=== PATIENT | male | born 1980 | race Caucasian/White ===

== ENCOUNTER 2016-11-11 12:01 | Inpatient (IN) | payer OTHER ==
[~2016-11-11] VITALS: Ht 170.2 cm; Wt 74.8 kg
[2016-11-11] VITALS (8 sets, daily range): BP systolic 104–125; BP diastolic 65–91
--- NOTE | 2016-11-11 12:25 | NUR ---
PT MOVED TO ED T1 FOR INTUBATION
--- NOTE | 2016-11-11 12:25 | NUR ---
VERBAL ORDERS BY DR. MILLER FOR ETOMIDATE 20MG IVP, PUSHED BY MYSELF. AND VECURONIUM 10MG IVP BY MYSELF, 10MG STERILE WATER MIXED WITH VEURONIUM POWDER.
--- NOTE | 2016-11-11 12:26 | NUR ---
REPORT TO ZIA MORALES, DR MILLER ATTEMPTING INTUBATION
--- NOTE | 2016-11-11 12:30 | NUR ---
INTUBATION ETT SIZE 8 AT 24 CM RIGHT LIP, RT AT BEDSIDE, AND DR MILLER GAVE ORDERS FOR VENTILATOR SETTINGS
[2016-11-11 12:54] LABS: PLATELET COUNT 345 x10^3mcL (130-400); RED CELL DISTRIBUTION WIDTH 12.4 % (11.5-14.5)
[2016-11-11 13:07] LABS: CALCIUM 9.3 mg/dL (8.5-10.1); CARBON DIOXIDE 14.4 mmol/L (21-32); CREATININE SERUM 1.6 mg/dL (0.7-1.3); POTASSIUM SERUM 3.4 mmol/L (3.5-5.1)
[2016-11-11 13:11] LABS: ALBUMIN 4.1 g/dL (3.4-5.0); BILIRUBIN TOTAL 0.4 mg/dL (0.20-1.00)
[2016-11-11 13:12] LABS: TOTAL PROTEIN, SERUM 8.4 g/dL (6.4-8.2)
[2016-11-11 13:14] LABS: BAND NEUTROPHIL 2 % (0-10); BASOPHIL 0 % (0-2); MONOCYTE 4 % (0-7); PLATELET MORPHOLOGY PLATELETS NORMAL; SEGMENTED NEUTROPHILS 62 % (37-75); rbc morphology (normal/abnorm) NORMAL (NORMAL)
--- NOTE | 2016-11-11 13:32 | NUR ---
UPDATE: ASSISTED PRIMARY RN DURING INTUBATION AND STABILIZATION. ESCORTED PT TO CT SCAN WITH RT, RT STUDENT AND READ TECH X2, PLACED MONITOR SHOWING TACHYCARDIA IN 160'S WITH HTN PER ED MONITOR. CT SCAN COMPLETED AND RETURNED TO T1. UNEVENTFUL. PLACED BACK ON MONITOR, SZ PRECAUTIONS IN PLACE, BED LOW. REMAINS HYPERTENSIVE WITH TACHYCARDIA IN 150'S. NEURO NOTE- PT HAD NO RESPONSE TO LT WRIST ABG. REMAINS ON VET 100% WITH 16 RESP/ CLR & EQUAL.
--- NOTE | 2016-11-11 13:35 | NUR ---
PER DR. MILLER TO TELL RT TO REDUE FIO2 TO 40%. CALLED RT AND SPOKE TO MARÍA TO REDUCE FIO2.
--- NOTE | 2016-11-11 13:46 | NUR ---
VERSED 5MG IVP INTO LKEFT HAND PER DR. MILLER VERBAL ORDER.
--- NOTE | 2016-11-11 13:47 | NUR ---
LUMBAR PUNCTURE PROCEDURE STARTED, ACCOMPANIED BY RT DANIEL, DR. MILLER, AND MYSELF.
[2016-11-11 13:50] LABS: AMPHETAMINE QUAL UR NONE DETECTED (NEG <=1000)
--- NOTE | 2016-11-11 13:52 | NUR ---
VERBAL ORDER FRMO DR. MILLER TO PUSH VECURONIUM 10MG IVP INTO RIGHT WRIST. MED PUSHED BY GIL MORALES. PT MOVING DURING LUMBAR PUNCTURE.
--- NOTE | 2016-11-11 14:06 | NUR ---
BELONGINGS NOTE: AFTER CT REMOVED THE FOLLOW FROM PT AND PLACED IN DENTURE CUP 1- YELLOW METAL NECKLACE WITH CRUCIIFX 2- SILVER COLORED METAL CHAIN BRACLETS 1- DIGITAL WATCH PT ARRIVED WITH 1 CELL PHONE, NO OTHER WALLET, ID OR VALUABLES OTHER THAN CLOTHING.
--- NOTE | 2016-11-11 14:10 | NUR ---
GAVE REPORT TO PERLA MORALES IN ICU, SHE WILL ASSUME CARE PRIMARY RN POST TRASNFER.
[2016-11-11 14:23] LABS: PHOSPHOROUS 3.5 mg/dL (2.5-4.9)
[2016-11-11 14:26] LABS: MAGNESIUM 1.9 mg/dL (1.8-2.4)
[2016-11-11 14:31] LABS: CHOLESTEROL/HDL RATIO 4.6
[2016-11-11 14:36] LABS: FREE T4 0.83 ng/dL (0.76-1.46); FREE THYROXINE INDEX 2.3 ug/dL (1.4-4.5); T4(THYROXINE) 7.5 ug/dL (4.7-13.3)
--- NOTE | 2016-11-11 14:37 | NUR ---
PTS DAUGHTER'S GODMOTHER CAME IN BUT UNABLE TO GIVE ANY HISTORY OF PT.
[2016-11-11 14:39] LABS: T3 TOTAL 1.03 ng/mL
[2016-11-11 14:40] LABS: TOTAL PROTEIN CSF 25.6 mg/dL (15-45)
--- NOTE | 2016-11-11 14:53 | NUR ---
PT ARRIVES ON UNIT AT THIS TIME ACCOMPANIED BY RT, ANDREW LIZARRAGA, AND EMT. PT TRANSFERRED FROM [facility] TO BED WITHOUT INCIDENT. PT ATTACHED TO [facility] [employer]. WILL CONTINUE TO MONITOR AT THIS TIME.
[2016-11-11 15:07] LABS: APPEARANCE CSF CLEAR; COLOR CSF COLORLESS; RBC CSF 0 /cumm (0); WBC CSF 1 /cumm (0-5)
--- NOTE | 2016-11-11 15:20 | NUR ---
RADIOLOGY AT BEDSIDE FOR KUB TO CONFIRM PLACEMENT OF OGT.
--- NOTE | 2016-11-11 15:20 | NUR ---
STUDENT CORBY INSERTED OGT AT THIS TIME WITH ASSISTANCE BY MYSELF. AIR AUSCULTATED OVER EPIGASTRIC AREA AT THIS TIME.
--- NOTE | 2016-11-11 15:27 | NUR ---
PT FLAILING AROUND BED AND ATTEMPTING TO PULL OUT IV LINES AND ETT. BILATERAL WRIST RESTRAINTS PLACED AT THIS TIME AFTER SEVERAL ATTEMPTS TO CALM PT DOWN AND REORIENT. VERSED TITRATED UP TO 5 MG AT THIS TIME. WILL CONTINUE TO MONITOR AT THIS TIME.
--- NOTE | 2016-11-11 15:30 | NUR ---
PATIENT WEIGHT 72.57KG FLUID CHALLENGE OF 2200CC BOLUS COMPLETED AT 1530 1531 BP 127/81 1537 BP 117/87 2ND LACTIC ACID ORDERED FOR 1600
--- NOTE | 2016-11-11 16:10 | NUR ---
LACTIC ACID POST FLUID CHALLENGE LACTIC ACID RESULTS 3.5
--- NOTE | 2016-11-11 16:12 | NUR ---
LAB AT BEDSIDE FOR BLOOD DRAW.
--- NOTE | 2016-11-11 16:12 | NUR ---
FENTANYL INITIATED AT 1 MCG/MIN AT THIS TIME. WILL CONTINUE TO MONITOR AT THIS TIME.
--- NOTE | 2016-11-11 16:23 | NUR ---
VERSED TITRATED DOWN TO 3 MG/HR AT THIS TIME. WILL CONTINUE TO MONITOR.
--- NOTE | 2016-11-11 16:53 | NUR ---
FENTANYL TITRATED DOWN TO 0.5 MCG/KG/HR. RSS 3 PT STILL FOLLOWS COMMANDS BUT APPEARS COMFORTABLE. WILL CONTINUE TO MONITOR.
--- NOTE | 2016-11-11 17:00 | NUR ---
PT IS INTUBATED WITH 8.0 ETT, 24 LL, OGT IN PLACE, SEDATED ON FENT 0.5 MCG/KG/HR AND VERSED 3 MG/HR, NS 100, RSS 3 AT THIS TIME PT FOLLOWS COMMANDS. PT EYES OPEN TO VERBAL STIMULI AND PUPILS ARE BRISK 3 MM BILATERALLY. NO S/S OF HEADACHE. PT ON AC MODE, PEEP 5, FI02 40%, RATE 16, VT 600. BUL RHONCHI, BLL DIM, PT WITH COPIOUS BLOOD TINGED ORAL SECRETIONS. PT HAS SCHRADER CATH IN PLACE DRAINING TO GRAVITY STRAW COLORED URINE. PT HAS OGT IN PLACE AND SECURED. PT ABD IS SOFT, DISTENDED, SYMMETRICAL AND NONTENDER TO PALPATION. PT HAS HYPOACTIVE BOWEL SOUNDS X 4 QUADRANTS. PT HAS NO EDEMA AND ALL PULSES PALPABLE. PT HAS R WRIST IV AND LH IV PATENT AND FLUSHING WELL. PT IS ON CMM INSPECTOR. WILL CONTINUE TO MONITOR PT AT THIS TIME.
--- NOTE | 2016-11-11 17:30 | NUR ---
AT BEDSIDE, UPDATES PROVIDED. DR EPHRAIM RIVERA AT THIS TIME.
--- NOTE | 2016-11-11 17:55 | NUR ---
AT BEDSIDE. UPDATES PROVIDED. DR YE ORDER ZOSYN. WILL CONTINUE TO MONITOR AT THIS TIME.
--- NOTE | 2016-11-11 18:20 | NUR ---
LABORATORY VETERINARIAN BEDSIDE FOR ECHO.
--- NOTE | 2016-11-11 18:30 | NUR ---
SPEAKING TO PT SPOUSE COLTEN FOR CENTRAL LINE PLACEMENT. ALL RISKS AND BENEFITS NOTED. SPOUSE COLTEN CONSENTED AT THIS TIME WITNESSED BY MYSELF. SEE CHART FOR CONSENT.
--- NOTE | 2016-11-11 19:05 | NUR ---
TIME OUT PERFORMED AT THIS TIME. SEE CHART FOR DETAILS.
--- NOTE | 2016-11-11 19:10 | NUR ---
RECEIVED REPORT FROM ANDREW DUNCAN, WILL TAKE OVER CARE.
--- NOTE | 2016-11-11 19:28 | NUR ---
REPORT GIVEN TO NOC SHIFT ANDREW HUTCHINS. ALL QUESTIONS AND CONCERNS ADDRESSED AT THIS TIME. WILL ENDORSE ALL CARE.
--- NOTE | 2016-11-11 19:45 | NUR ---
PT ON VENT SEDATED WITH FENTANYL AND VERSED, MRSS 4, FULL PASSIVE ROM, LIMITED ACTIVE DUE TO SOFT RESTRAINTS, REACTIVE TO PAINFUL STIMULI, PUPILS REACTIVE, AC MODE 8.0, 24 LL, NO DRAINAGE EENT, TRACHEA MIDLINE, RIJ IN PLACE, NO COUGH OR SECRETIONS AT THIS TIME, ORAL MUCOSA PINK AND DRY, ORAL CARE PROVIDED. FIO2 40, PEEP 5, VT 500, RR 16, RESPIRATIONS EQUAL AND UNLABORED, LUNGS CLEAR BUL, DIM BLL, NO S/S OF DISTRESS. SKIN APPROPRIATE FOR ETHNICITY, COOL AND DRY, CAP REFILL <3, PULSES PALPABLE. NO CONTRACTURES OR DEFORMITIES. PT NPO, NO N/V. ABD SOFT, ROUND, NONTENDER, NO BM. F/C IN PLACE, URINE YELLOW, NO PENIAL, DRAINAGE OR EDEMA. WILL CONTINUE TO MONITOR.
--- NOTE | 2016-11-11 19:49 | NUR ---
RADIOLOGY AT BEDSIDE FOR CONFIRM PLACEMENT OF CENTRAL LINE.
--- NOTE | 2016-11-11 20:02 | NUR ---
DR GRACIA RICO, WILL CONTINUE TO MONITOR.
--- NOTE | 2016-11-11 21:51 | NUR ---
titrated fentanyl to 1.5mcg, versed 3.5 mg, will continue to monitor
[2016-11-12] VITALS (12 sets, daily range): BP systolic 108–137; BP diastolic 62–86
--- NOTE | 2016-11-12 02:05 | NUR ---
PT TRYING TO GET OUT OF BED, ADMINISTERED 1MG ATIVAN, WILL CONTINUE TO MONITOR.
--- NOTE | 2016-11-12 03:38 | NUR ---
PT ANXIOUS, ATIVAN 1MG ADMINISTERED, WILL CONTINUE TO MONITOR.
[2016-11-12 05:47] LABS: BASOPHIL % 0.4 % (0-2); PLATELET COUNT 242 x10^3mcL (130-400); RED CELL DISTRIBUTION WIDTH 13.1 % (11.5-14.5)
[2016-11-12 05:57] LABS: CALCIUM 7.4 mg/dL (8.5-10.1); CARBON DIOXIDE 23.3 mmol/L (21-32); CHLORIDE SERUM 108 mmol/L (98-107); GFR1 > 60 mL/min; GLUCOSE SERUM 126 mg/dL (74-106); MAGNESIUM 1.7 mg/dL (1.8-2.4); PHOSPHOROUS 2.6 mg/dL (2.5-4.9); POTASSIUM SERUM 3.4 mmol/L (3.5-5.1); SODIUM SERUM 142 mmol/L (136-145)
--- NOTE | 2016-11-12 07:00 | NUR ---
RECEIVED REPORT FROM NOC SHIFT ANDREW HUTCHINS, ALL QUESTIONS AND CONCERNS ADDRESSED AT THIS TIME. WILL ASSUME ALL CARE.
--- NOTE | 2016-11-12 07:30 | NUR ---
PT IS INTUBATED AND SEDATED ON FENT 2 MCG/KG/HR, AND VERSED TITRATED UP TO 6 MG/HR DUE TO FLAILING AROUND IN BED AND ATTEMPTING TO PULL OUT ETT. PT FOLLOWS COMMANDS BUT IS EASILY AGITATED. RSS 3 PT DOES FOLLOW COMMANDS. PT EYES OPEN TO VERBAL STIMULI AND PUPILS REMAIN 3 MM BRISK BILATERALLY. PT SHOWS NO S/S OF HEADACHE. PT HAS RIJ INFUSING NS 100 ML/HR, ALL PORTS PATENT AND FLUSHING, CDI DRESSING. CVP 10. PT HAS OGT, CURRENTLY WAITING TO START FEEDING. PT ON AC MODE, PEEP 5, FI02 35%, RATE 16, VT 500. BUL CLEAR, BLL DIM, NO SECRETIONS REMOVED AND ORAL CARE PROVIDED. PT HAS SCDS IN PLACE AND SUBQ HEP ORDERED FOR DVT PROPHYLAXIS. PT ABD IS SOFT, ROUND, SYMMETRICAL AND NONTENDER TO PALPATION PER FLACC SCALE. PT HAS HYPOACTIVE BOWEL SOUNDS X 4 QUADRANTS. PT HAS SCHRADER CATH IN PLACE DRAINING TO GRAVITY YELLOW URINE WITH SEDIMENT NOTED IN URINE, NO PENILE DISCHARGE OR LABIAL EDEMA. PT IS ON FURNITURE RESTORER AND WITHIN CLOSE VIEW OF NURSES STATION. WILL CONTINUE TO MONITOR AT THIS TIME.
--- NOTE | 2016-11-12 10:15 | NUR ---
PYRIDINE RECOVERY OPERATOR JOON AT BEDSIDE, PER PYRIDINE RECOVERY OPERATOR WAIT 2 HOURS AFTER DILTANTIN COMPLETED FOR TUBE FEEDING FOR MOST EFFECTIVE USE OF DILANTIN. WILL CONTINUE TO MONITOR AT THIS TIME.
--- NOTE | 2016-11-12 12:45 | NUR ---
Initial Nutrition Assessment Dx: Metabolic Encephalopathy 2/2 Seizure Disorder, Status Epilepticus s/p Intubation 11/11/16 PMHx: Seizures, Renal stones, Hernia repair PSHx: Hernia Repair Labs: BG 126H, K+ 3.4L, Alb 4.1, ALP 92H, TRIG 354H, CHOL 225H, LDL 130H, A1C 6.1, Mg 1.7L, Lactic acid 3.5H, WBC 13.5H, H/H 13.9/41L, PO2 328.9H, Tmax 36.7C, FiO2 35, MV 7.7, P:F=940 Meds: protonix, heparin, dilantin last given at 08:44 (11/12), colace, ativan, NS, KCl-, magnesium sulfate, humulin R, D50, zofran, morphine Current TF Order (11/12): Nutren Pulmonary via OGT at 30ml/kc=[id number], 49g protein, 563ml free H2O. Free H2O: 50ml q6hr (OGT x2 days) TF Intakes: none recorded (11/12) Residuals: none recorded (11/12) I/O's:4246/2550 (+1696ml) Ht: 170.18cm,67". Wt: 165lbs, 74.8kg. BMI: 25.8 kg/m2 (Overweight) IBW: 148lb, 67.2 kg. %IBW: 111%. UBW: family unsure Age: 36 Y/O M Food Allergies: NKFA Skin: intact. Nikunj:14 Edema: None noted GI:abd soft and round, nontender, hypoactive bowel sounds . Last BM:unknown last BM (11/11) Pt admitted w/Metabolic Encephalopathy 2/2 Seizure Disorder, Status Epilepticus s/p Intubation 11/11/16, seen at bedside +ETT to vent support, +OGT in place, girlfriend present, the RD did not notice any TF bag hanging, spoke to girlfriend, requested interview in [place], the RD agreed and translated,reports the pt has a good intake at home, she prepares all his meals and is very active, is unsure of wt hx . Spoke to RN, reports the retail shift leader did not start TF so she will at 10am, the RD also informed the RN on the Dilantin DNI w/ enteral feeds in that it needs to be held 2 hours before and after administration of medication, the RN verbalized understanding, no BM during shift. Problem with: N: None. V: None. D: none. C: None. Problem with: Chewing: None. Swallowing: None. Current Appetite: N/A Recent Weight Change: unable to assess. % Weight Change: unable to assess Vitamin/Supplement Use: Vitamin C Diet at Home: 3 meals per day as prepared by girlfriend Physical Activity: walks everyday Education: none Estimated Nutritional Needs Based on CBW 165 lb, 74.8kg Energy: 1731 vs 4395-5064 kcal/day (PSU 2003b vs 25-30 kcal/kg for Vent Support) Protein: 90-112 g/day (1.2-1.5g/kg for Vent Support) Fluid: 5372-7918 ml/day (1 ml/kcal for Vent Support) or per MD Nutrition Diagnosis 1. Inadequate enteral nutrition infusion related to TF not initiated 2/2 S/P intubation as evidenced by no recorded TF intake (11/12) Intervention 1. When medically feasible, initiate Peptamen AF via OGT at 15ml/hr and advance by 10ml q4hr to goal rate of 65ml/hr to provide 1872kcals, 119g protein, 1260ml free H2O. Free H2O Flush of 100ml q4hr (total free H2O 1860ml) or per MD. Note, higher goal rate to account for the 2 hours of administration of Dilantin. 2. Replete K+ PRN Monitor/Evaluate Goal: TF intakes to meet at least 50% of estimated needs w/ tolerance Monitor: TF intakes/tolerance, labs, skin integrity, GI function, wt F/U in 2-3 days as HIGH risk (11/14-11/15)
--- NOTE | 2016-11-12 12:57 | NUR ---
1. When medically feasible, initiate Peptamen AF via OGT at 15ml/hr and advance by 10ml q4hr to goal rate of 65ml/hr to provide 1872kcals, 119g protein, 1260ml free H2O. Free H2O Flush of 100ml q4hr (total free H2O 1860ml) or per MD. Note, higher goal rate to account for the 2 hours of administration of Dilantin. 2. Replete K+ PRN
--- NOTE | 2016-11-12 13:18 | NUR ---
FENTANYL AND VERSED TURNED OFF AT THIS TIME IN PREP FOR CPAP AND WEANING TRIALS PER . WILL CONTINUE TO MONITOR AT THIS TIME.
--- NOTE | 2016-11-12 13:30 | NUR ---
KEMI RT AT BEDSIDE TO PLACE PT ON CPAP. WILL CONTINUE TO MONITOR AT THIS TIME.
--- NOTE | 2016-11-12 13:43 | NUR ---
KEMI RT AT BEDSIDE FOR ABG AND WEANING PARAMETERS.
--- NOTE | 2016-11-12 14:05 | NUR ---
RT MCMULLEN AND AT BEDSIDE FOR EXTUBATION. PT EXTUBATED AT THIS TIME AND 3L NC PLACED AT THIS TIME. WILL CONTINUE TO MONITOR.
--- NOTE | 2016-11-12 14:05 | NUR ---
RESTRAINTS REMOVED AT THIS TIME PT DOES NOT NEED AT THIS TIME. WILL CONTINUE TO MONITOR.
--- NOTE | 2016-11-12 14:50 | NUR ---
R WRIST IV DC'D AT THIS TIME BY PATIENT. PT DESATING TO 88%, INCREASED 02 TO 4L AT THIS TIME NC. WILL CONTINUE TO MONITOR AT THIS TIME.
--- NOTE | 2016-11-12 17:15 | NUR ---
AT BEDSIDE. UPDATES PROVIDED. NO NEW ORDERS AT THIS TIME.
--- NOTE | 2016-11-12 19:25 | NUR ---
RECEIVED BEDSIDE REPORT. SEEN PATIETN AWAKE, ALERT, ORIENTED, LAO AND SOME MALAGASY SPEAKING. NO RESPIRATORY DISTRESS NOTED, ON O2 4LPM N/C, O2SAT 96% ON THE MONITOR. DENIES PAIN. TLC TO RIJ WITH NS AT 100ML/HR INFUSING WELL. ALL LUMENS FLUSHED PATENT. NO SEIZURE ACTIVITIES NOTED, SEIZURE PRECAUTION MAINTAINED. SCHRADER CATH DRAINING TO GRAVITY YELLOW URINE COLORED. PLAN OF CARE DISCUSSED. CALL LIGHT PLACED WITHIN REACH. SIDERAILS UP X4 WITH PADDED.
--- NOTE | 2016-11-12 19:28 | NUR ---
BEDSIDE SWALLOW SCREEN DONE AT THIS TIME, OK PER , PT TOLERATING JELLO, PUDDING, ICE AND APPLE JUICE. NOTIFIED TO ORDER FULL LIQUID DIET FOR NOW. NOC SHIFT RN AWARE.
--- NOTE | 2016-11-12 20:28 | NUR ---
SPOUSE AT BEDSIDE. PATIENT TALKING ON THE PHONE. NO ACUTE DISTRESS NOTED. APPLE JUICE PROVIDED.
--- NOTE | 2016-11-12 23:58 | NUR ---
asleep at this time. no acute distress noted.
[2016-11-13 00:05] VITALS: BP 125/68
--- NOTE | 2016-11-13 03:30 | NUR ---
PATIENT IS INFORMED REGARDING TO A TRANSFER TO [facility]. S/L TO RIJ TLC, ALL LUMENS FLUSHED PATENT. SCHRADER CATH REMOVED, NOTED YELLOW URINE [address] JUDGE DISCONNECTED. DENIES PAIN. NO SEIZURE ACTIVITY AT THIS TIME.
--- NOTE | 2016-11-13 03:41 | NUR ---
TRANSFERRED TO MED/SURG VIA WHEELCHAIR. NO ACUTE DISTRESS NOTED UPON TRANSFER.
--- NOTE | 2016-11-13 03:58 | NUR ---
RECEIVED PATIENT FROM ICU, PATIENT IN NO ACUTE DISTRESS, NO C/O PAIN AT THIS TIME, ORIENTED PATIENT TO ROOM AND SURROUNDINGS, BED IN LOW POSIITON, BED RAILS UP X 2, CALL LIGHT WITHIN REACH, WILL CONTINUE TO MONTIOR
--- NOTE | 2016-11-13 03:59 | NUR ---
PATIENTS VITALS BP 114/67, HR 85, RR 20, PULSE OX 94% RA, TEMP 99.4, PAIN 0/10, WILL CONTINUE TO MONITOR
[2016-11-13 05:52] VITALS: BP 113/58
--- NOTE | 2016-11-13 09:00 | NUR ---
PT ON BED, AWAKE, ALERT, AND ORIENTED. HAS NO COMPLAINT OF PAIN, SOB, OR DIZZINESS. RESPONDS WELL TO QUESTION AND ANSWER. CLEAR KVNG LUNG FIELD, SYMMETRICAL CHEST EXPANSION AND UNLABORED. ACTIVE BOWEL SOUNDS NOTED. NON DISTENDED ABDOMEN. SKIN INTACT. SIDE RAILS UP, CALL LIGHT WITHIN REACH, WILL CONTINUE TO MONITOR
[2016-11-13 09:57] VITALS: BP 118/62
[2016-11-13 10:29] LABS: BASOPHIL % 0.2 % (0-2); PLATELET COUNT 233 x10^3mcL (130-400); RED CELL DISTRIBUTION WIDTH 12.8 % (11.5-14.5)
[2016-11-13 10:39] LABS: CALCIUM 8.3 mg/dL (8.5-10.1); CARBON DIOXIDE 27.5 mmol/L (21-32); CHLORIDE SERUM 106 mmol/L (98-107); CREATININE SERUM 1.1 mg/dL (0.7-1.3); GFR1 > 60 mL/min; GLUCOSE SERUM 173 mg/dL (74-106); PHOSPHOROUS 2.2 mg/dL (2.5-4.9); POTASSIUM SERUM 3.5 mmol/L (3.5-5.1); SODIUM SERUM 140 mmol/L (136-145)
--- NOTE | 2016-11-13 12:00 | NUR ---
PT'S ACCUCHECK SHOWED 124. NO COVERAGE NEEDED. IV ANTIBIOTIC HANGED AND INFUSING WELL. WILL CONTINUE TO MONITOR
--- NOTE | 2016-11-13 14:10 | NUR ---
PT ON BED, ASLEEP
[2016-11-13] MEDS ORDERED: DILANTIN100 MG PO (15:12)
[2016-11-13 15:41] VITALS: BP 118/62
== END 2016-11-13 17:10 | disposition home or self-care (01) | DRG 100 ==
LOC: ED 12:01 → MU 13:30 → EDBD 13:30 → IC 13:30 → MU 11-13 03:56
PROVIDERS: Emergency Medicine; ADMIT Family Medicine
PROC: 5A1935Z Respiratory Ventilation, Less than 24 Consecutive Hours (ICD-10-PCS; principal; 2016-11-11)
PROC: 0BH17EZ Insertion of Endotracheal Airway into Trachea, Via Natural or Artificial Opening (ICD-10-PCS; 2016-11-11)
PROC: 05HM33Z Insertion of Infusion Device into Right Internal Jugular Vein, Percutaneous Approach (ICD-10-PCS; 2016-11-11)
PROC: B543ZZA Ultrasonography of Right Jugular Veins, Guidance (ICD-10-PCS; 2016-11-11)
DX: G40.901 Epilepsy, unspecified, not intractable, with status epilepticus (principal); G93.41 Metabolic encephalopathy; J96.00 Acute respiratory failure, unspecified whether with hypoxia or hypercapnia; N17.0 Acute kidney failure with tubular necrosis; E87.2 Acidosis; J98.8 Other specified respiratory disorders; K04.7 Periapical abscess without sinus; E87.6 Hypokalemia; E78.5 Hyperlipidemia, unspecified; Z87.442 Personal history of urinary calculi
CPT/HCPCS: 31500; 36556; 36600; 80307; 82962; 83880; 84439; A4628; C9113; J0696; J1165; J1642; J1644; J2060; J2250; J2543; J3010; J3475; J3480; J3490; J7030; J7040; Q0092